=== PATIENT | female | born 1935 | race African-American/Black ===

== ENCOUNTER 2019-07-15 18:52 | Inpatient (IN) | payer MEDICARE, OTHER ==
[~2019-07-15] VITALS: Ht 165.1 cm; Wt 58.1 kg
[2019-07-15] MEDS ORDERED: SODIUM CHLORIDE 0.9% 1,000 ML IV ONE (19:23)
[2019-07-15] MEDS ORDERED: ONDANSETRON HCL 4MG/2ML INJ IV STA (19:23)
[2019-07-15 20:08] LABS: BASOPHILS % 0.5 % (0.0-2.0); EOSINOPHILS % 0.6 % (0.0-5.0); HEMOGLOBIN. 12.1 g/dL (12.0-16.0); LYMPHOCYTES % 17.4 % (20.0-50.0); MEAN CORPUSCULAR HEMOGLOBIN 31.4 pg (28.0-32.0); MEAN CORPUSCULAR VOLUME 88.3 fL (81.0-99.0); MEAN PLATELET VOLUME 8.5 fl (7.4-10.4); MONOCYTES % 6.4 % (2.0-8.0); NEUTROPHILS % 75.1 % (40.0-76.0); PLATELET 238 x1000/uL (130-400); RED BLOOD CELL COUNT 3.85 mill/uL (4.2-5.4); RED CELL DISTRIBUTION WIDTH 13.4 % (11.6-14.6)
[2019-07-15 20:14] LABS: INR 1.1; PARTIAL THROMBOPLASTIN TIME 24.6 sec (23.4-31.0); PROTHROMBIN TIME 10.9 sec (9.6-11.0)
[2019-07-15 20:19] LABS: CHLORIDE 108 mEq/L (98-107)
[2019-07-15 20:23] LABS: ETHANOL BLOOD < 10 mg/dL
[2019-07-15] MEDS ORDERED: LORAZEPAM 2MG/ML CPJ IV PRN (22:15)
[2019-07-15] MEDS ORDERED: IPRATROPIUM/ALBUTEROL 0.5-3(2.5)MG/3ML NEB HHN PRN (22:15)
[2019-07-15] MEDS ORDERED: HYDRALAZINE 20MG/ML VIAL IV PRN (22:15)
[2019-07-15] MEDS ORDERED: DOCUSATE SODIUM 100MG CAPSULE PO PRN (22:15)
[2019-07-15] MEDS ORDERED: DEXTROSE 50% WATER 50ML SYRINGE IV PRN (22:15)
[2019-07-15] MEDS ORDERED: HYDROCODONE/ACETAMINOPHEN 10/325MG TABLET PO PRN (22:15)
[2019-07-15] MEDS ORDERED: ACETAMINOPHEN 325MG TABLET PO PRN (22:15)
[2019-07-15] MEDS ORDERED: GUAIFENESIN 200MG/10ML SUGAR FREE UDC PO PRN (22:15)
[2019-07-15] MEDS ORDERED: ONDANSETRON HCL 4MG/2ML INJ IV PRN (22:15)
[2019-07-15] MEDS ORDERED: DIPHENHYDRAMINE 50MG/ML VIAL IV PRN (22:15)
[2019-07-15] MEDS ORDERED: CLONIDINE 0.1MG TABLET PO PRN (22:15)
[2019-07-15] MEDS ORDERED: MORPHINE SULFATE 2 MG/ML CPJ (NOT FOR IM USE) IV PRN (22:15)
[2019-07-15] MEDS ORDERED: NA PHOS,M-B/NA PHOS,DI-BA ENEMA 118ML PR PRN (22:15)
[2019-07-15] MEDS ORDERED: MAGNESIUM/ALUMINUM HYDROXIDE/SIMETHICONE 30ML UDC PO PRN (22:15)
[2019-07-16 05:33] LABS: BASOPHILS % 0.6 % (0.0-2.0); EOSINOPHILS % 0.9 % (0.0-5.0); HEMATOCRIT. 31.9 % (36.0-48.0); HEMOGLOBIN. 11.6 g/dL (12.0-16.0); LYMPHOCYTES % 28.8 % (20.0-50.0); MEAN CORPUSCULAR VOLUME 88.1 fL (81.0-99.0); MEAN PLATELET VOLUME 8.1 fl (7.4-10.4); MONOCYTES % 9.8 % (2.0-8.0); NEUTROPHILS % 59.9 % (40.0-76.0); PLATELET 218 x1000/uL (130-400); RED BLOOD CELL COUNT 3.62 mill/uL (4.2-5.4); RED CELL DISTRIBUTION WIDTH 13.2 % (11.6-14.6)
[2019-07-16 05:40] LABS: CHLORIDE 110 mEq/L (98-107)
[2019-07-16 05:48] LABS: LDL CHOLESTEROL 80 mg/dL (5-100)
[2019-07-16 05:49] LABS: HDL CHOLESTEROL 41 mg/dL (40-59); T4 FREE 0.79 ng/dL (0.76-1.46)
[2019-07-16 05:50] LABS: CREATINE KINASE 216 IU/L (26-192)
[2019-07-16 05:51] LABS: CREATINE KINASE MB FRACTION 3.2 ng/mL (0.5-3.6)
[2019-07-16 06:00] VITALS: BP 174/72
[2019-07-16] MEDS: SODIUM CHLORIDE 0.9% INJ 3ML FLUSH IVF SCH ×3 (06:32→21:07)
[2019-07-16] MEDS: BLOOD SUGAR DIAGNOSTIC STRIP TEST SCH ×4 (07:00→20:24)
[2019-07-16] MEDS: INSULIN LISPRO 100 UNITS/ML SUBCUT SCH ×4 (07:01→20:25)
[2019-07-16 08:00] VITALS: BP 118/62
[2019-07-16] MEDS ORDERED: DONE10TA36 MT (09:30)
[2019-07-16] MEDS ORDERED: ISOS10TA2 MT (09:30)
[2019-07-16] MEDS ORDERED: FERR325T6 PO (09:30)
[2019-07-16] MEDS ORDERED: METF-414 MT (09:30)
[2019-07-16] MEDS ORDERED: PIOG45TA5 PO (09:30)
[2019-07-16] MEDS ORDERED: FURO-151 MT (09:30)
[2019-07-16] MEDS ORDERED: ASPI-1393 PO (09:30)
[2019-07-16] MEDS ORDERED: FOLI20CA MT (09:30)
[2019-07-16] MEDS ORDERED: CALC-854 PO (09:30)
[2019-07-16] MEDS ORDERED: CRES10 MT (09:30)
[2019-07-16 12:00] VITALS: BP 136/53
[2019-07-16 12:03] VITALS: BP 145/62
[2019-07-16 12:05] VITALS: BP 164/84
[2019-07-16 16:20] LABS: CREATINE KINASE 252 IU/L (26-192)
[2019-07-16 16:21] LABS: CREATINE KINASE MB FRACTION 3.1 ng/mL (0.5-3.6)
[2019-07-16 16:59] LABS: CLARITY URINE CLEAR (CLEAR); COLOR URINE YELLOW (YELLOW); KETONES URINE NEGATIVE (NEGATIVE); LEUKOCYTE ESTERASE URINE NEGATIVE (NEGATIVE); NITRITE URINE NEGATIVE (NEGATIVE); OCCULT BLOOD URINE NEGATIVE (NEGATIVE); PH URINE 7.5 (4.5-8.0); PROTEIN URINE NEGATIVE (NEGATIVE); SPECIFIC GRAVITY URINE 1.021 (1.005-1.030)
[2019-07-16 17:15] LABS: *AMPHETAMINES SCREEN URINE NEGATIVE (NEGATIVE); *BENZODIAZEPINES SCREEN URINE NEGATIVE (NEGATIVE); *COCAINE SCREEN URINE NEGATIVE (NEGATIVE); CANNABINOID URINE SCREEN NEGATIVE (NEGATIVE); METHADONE URINE SCREEN NEGATIVE (NEGATIVE); OPIATES URINE SCREEN NEGATIVE (NEGATIVE); PHENCYCLIDINE URINE SCREEN NEGATIVE (NEGATIVE)
[2019-07-16 17:16] LABS: *BARBITURATES SCREEN URINE NEGATIVE (NEGATIVE)
[2019-07-16 20:00] VITALS: BP 144/49
[2019-07-17] VITALS (7 sets, daily range): BP systolic 126–201; BP diastolic 40–100
[2019-07-17] MEDS: SODIUM CHLORIDE 0.9% INJ 3ML FLUSH IVF SCH ×3 (05:35→23:23)
[2019-07-17] MEDS: BLOOD SUGAR DIAGNOSTIC STRIP TEST SCH ×4 (07:20→20:36)
[2019-07-17] MEDS: INSULIN LISPRO 100 UNITS/ML SUBCUT SCH ×4 (07:50→20:36)
[2019-07-17 09:34] LABS: BASOPHILS % 0.7 % (0.0-2.0); EOSINOPHILS % 2.5 % (0.0-5.0); HEMATOCRIT. 35.4 % (36.0-48.0); HEMOGLOBIN. 12.4 g/dL (12.0-16.0); LYMPHOCYTES % 27.4 % (20.0-50.0); MEAN CORPUSCULAR HEMOGLOBIN 30.8 pg (28.0-32.0); MEAN CORPUSCULAR VOLUME 87.9 fL (81.0-99.0); MEAN PLATELET VOLUME 8.8 fl (7.4-10.4); MONOCYTES % 7.5 % (2.0-8.0); NEUTROPHILS % 61.9 % (40.0-76.0); PLATELET 236 x1000/uL (130-400); RED BLOOD CELL COUNT 4.03 mill/uL (4.2-5.4); RED CELL DISTRIBUTION WIDTH 13.3 % (11.6-14.6)
[2019-07-18 00:30] VITALS: BP 119/53
[2019-07-18 04:00] VITALS: BP 148/57
[2019-07-18] MEDS: SODIUM CHLORIDE 0.9% INJ 3ML FLUSH IVF SCH (06:50)
[2019-07-18] MEDS: BLOOD SUGAR DIAGNOSTIC STRIP TEST SCH ×2 (06:50→13:46)
[2019-07-18] MEDS: INSULIN LISPRO 100 UNITS/ML SUBCUT SCH (07:50)
[2019-07-18 07:57] LABS: BASOPHILS % 0.9 % (0.0-2.0); HEMATOCRIT. 34.7 % (36.0-48.0); HEMOGLOBIN. 12.3 g/dL (12.0-16.0); MEAN CORPUSCULAR HEMOGLOBIN 31.5 pg (28.0-32.0); MEAN CORPUSCULAR VOLUME 89.3 fL (81.0-99.0); MEAN PLATELET VOLUME 9.1 fl (7.4-10.4); MONOCYTES % 10.5 % (2.0-8.0); NEUTROPHILS % 55.6 % (40.0-76.0); PLATELET 217 x1000/uL (130-400); RED BLOOD CELL COUNT 3.89 mill/uL (4.2-5.4); RED CELL DISTRIBUTION WIDTH 13.3 % (11.6-14.6)
[2019-07-18 08:00] VITALS: BP_SYST 143; BP_SYST 157; BP_SYST 176; BP_DIAS 56; BP_DIAS 64; BP_DIAS 81
[2019-07-18 10:18] VITALS: BP 143/56
[2019-07-18 12:00] VITALS: BP 151/58
== END 2019-07-18 13:50 | disposition home or self-care (01) | DRG 72 ==
LOC: ER 19:39 → 6WST 22:03 → EDBEDREQ 22:06 → EDBEDREQTM 22:06 → ENRESERV 07-16 05:02
PROVIDERS: ADMIT Internal Medicine; ATTEND Internal Medicine
DX: G93.40 Encephalopathy, unspecified (principal); I45.10 Unspecified right bundle-branch block; E11.9 Type 2 diabetes mellitus without complications; E78.5 Hyperlipidemia, unspecified; R55 Syncope and collapse; I10 Essential (primary) hypertension; I25.10 Atherosclerotic heart disease of native coronary artery without angina pectoris; M85.80 Other specified disorders of bone density and structure, unspecified site; Z79.84 Long term (current) use of oral hypoglycemic drugs; Z79.899 Other long term (current) drug therapy; Z86.73 Personal history of transient ischemic attack (TIA), and cerebral infarction without residual deficits; Z98.61 Coronary angioplasty status; Z79.82 Long term (current) use of aspirin; Z88.0 Allergy status to penicillin
CPT/HCPCS: 36415; 70544; 70553; 71045; 80048; 80061; 80305; 80320; 81003; 82550; 82553; 82962; 83036; 83880; 84439; 84443; 84484; 85379; 93005; 93306; 93880; 93970; 96374; 97162; 99285; J2405; J7030; G0480

== ENCOUNTER 2019-09-04 19:33 | Inpatient (IN) | payer MEDICARE, OTHER ==
[~2019-09-04] VITALS: Ht 165.1 cm; Wt 70.3 kg
[~2019-09-04 19:33] MED LIST: ASPI-1497 PO; CALC-854 PO; CRES10 MT; DONE10TA36 MT; FERR325T6 PO; FOLI20CA MT; FURO-151 MT; ISOS10TA2 MT; METF-414 MT; PIOG45TA5 PO
[2019-09-04 22:06] LABS: BASOPHILS % 0.6 % (0.0-2.0); EOSINOPHILS % 0.5 % (0.0-5.0); HEMATOCRIT. 37.1 % (36.0-48.0); HEMOGLOBIN. 13.1 g/dL (12.0-16.0); LYMPHOCYTES % 13.1 % (20.0-50.0); MEAN CORPUSCULAR HEMOGLOBIN 31.4 pg (28.0-32.0); MEAN CORPUSCULAR VOLUME 88.7 fL (81.0-99.0); MEAN PLATELET VOLUME 8.6 fl (7.4-10.4); MONOCYTES % 4.1 % (2.0-8.0); NEUTROPHILS % 81.7 % (40.0-76.0); PLATELET 248 x1000/uL (130-400); RED BLOOD CELL COUNT 4.19 mill/uL (4.2-5.4)
[2019-09-04 22:09] LABS: INR 1.1; PROTHROMBIN TIME 11.2 sec (9.6-11.0)
[2019-09-04 22:11] LABS: CHLORIDE 106 mEq/L (98-107)
[2019-09-04] MEDS ORDERED: ASPIRIN 325MG EC TABLET PO ONE (22:45)
[2019-09-04] MEDS ORDERED: SODIUM CHLORIDE 0.9% 500 ML IV ONE (22:50)
[2019-09-05 00:51] LABS: CLARITY URINE CLEAR (CLEAR); COLOR URINE YELLOW (YELLOW); KETONES URINE TRACE (NEGATIVE); LEUKOCYTE ESTERASE URINE 1+ (NEGATIVE); NITRITE URINE NEGATIVE (NEGATIVE); OCCULT BLOOD URINE NEGATIVE (NEGATIVE); PH URINE 6.5 (4.5-8.0); PROTEIN URINE TRACE (NEGATIVE); SPECIFIC GRAVITY URINE 1.025 (1.005-1.030)
[2019-09-05] MEDS ORDERED: IPRATROPIUM/ALBUTEROL 0.5-3(2.5)MG/3ML NEB HHN PRN (10:00)
[2019-09-05] MEDS ORDERED: ACETAMINOPHEN 650MG SUPP PR PRN (10:00)
[2019-09-05] MEDS ORDERED: ACETAMINOPHEN 650MG/20.3ML UDC GT PRN (10:00)
[2019-09-05] MEDS ORDERED: DIPHENHYDRAMINE 50MG/ML VIAL IV PRN (10:00)
[2019-09-05] MEDS ORDERED: ACETAMINOPHEN 325MG TABLET PO PRN (10:00)
[2019-09-05] MEDS ORDERED: CLONIDINE 0.1MG TABLET PO PRN (10:00)
[2019-09-05] MEDS ORDERED: MAGNESIUM/ALUMINUM HYDROXIDE/SIMETHICONE 30ML UDC PO PRN (10:00)
[2019-09-05] MEDS ORDERED: DOCUSATE SODIUM 100MG CAPSULE PO PRN (10:00)
[2019-09-05] MEDS ORDERED: NA PHOS,M-B/NA PHOS,DI-BA ENEMA 118ML PR PRN (10:00)
[2019-09-05] MEDS: SODIUM CHLORIDE 0.45% 1,000 ML IV SCH (10:31)
[2019-09-05] MEDS: ENOXAPARIN 30MG/0.3ML SYR SUBCUT SCH (10:32)
[2019-09-05 11:28] LABS: CHLORIDE 109 mEq/L (98-107)
[2019-09-05] MEDS: LISINOPRIL 5MG TABLET PO SCH (12:02)
[2019-09-05 13:51] LABS: BASOPHILS % 0.7 % (0.0-2.0); EOSINOPHILS % 2.1 % (0.0-5.0); HEMATOCRIT. 32.2 % (36.0-48.0); HEMOGLOBIN. 11.6 g/dL (12.0-16.0); LYMPHOCYTES % 27.4 % (20.0-50.0); MEAN CORPUSCULAR HEMOGLOBIN 31.7 pg (28.0-32.0); MEAN CORPUSCULAR VOLUME 88.4 fL (81.0-99.0); MEAN PLATELET VOLUME 8.5 fl (7.4-10.4); MONOCYTES % 7.3 % (2.0-8.0); NEUTROPHILS % 62.5 % (40.0-76.0); PLATELET 221 x1000/uL (130-400); RED BLOOD CELL COUNT 3.65 mill/uL (4.2-5.4); RED CELL DISTRIBUTION WIDTH 12.8 % (11.6-14.6)
[2019-09-05] MEDS: SODIUM CHLORIDE 0.9% INJ 3ML FLUSH IVF SCH ×2 (14:17→20:55)
[2019-09-05 16:30] VITALS: BP 148/50
[2019-09-05] MEDS ORDERED: PNEUMOCOCCAL 23-VAL P-SAC VAC 0.5 ML IM ONE (18:15)
[2019-09-05 20:00] VITALS: BP 148/66
[2019-09-05 21:03] LABS: CREATINE KINASE 234 IU/L (26-192); CREATINE KINASE MB FRACTION 2.7 ng/mL (0.5-3.6)
[2019-09-06] VITALS: BP 158/60
[2019-09-06] MEDS: SODIUM CHLORIDE 0.45% 1,000 ML IV SCH ×2 (02:39→19:19)
[2019-09-06 04:00] VITALS: BP 155/66
[2019-09-06 08:00] VITALS: BP 183/62
[2019-09-06 08:37] LABS: BASOPHILS % 0.7 % (0.0-2.0); EOSINOPHILS % 2.5 % (0.0-5.0); HEMATOCRIT. 35.5 % (36.0-48.0); HEMOGLOBIN. 12.5 g/dL (12.0-16.0); LYMPHOCYTES % 30.4 % (20.0-50.0); MEAN CORPUSCULAR HEMOGLOBIN 31.2 pg (28.0-32.0); MEAN CORPUSCULAR VOLUME 88.9 fL (81.0-99.0); MEAN PLATELET VOLUME 8.6 fl (7.4-10.4); MONOCYTES % 7.7 % (2.0-8.0); NEUTROPHILS % 58.7 % (40.0-76.0); PLATELET 231 x1000/uL (130-400)
[2019-09-06 08:47] LABS: CHLORIDE 108 mEq/L (98-107)
[2019-09-06 08:57] LABS: LDL CHOLESTEROL 79 mg/dL (5-100)
[2019-09-06 08:58] LABS: CREATINE KINASE 208 IU/L (26-192)
[2019-09-06 08:59] LABS: HDL CHOLESTEROL 43 mg/dL (40-59)
[2019-09-06 09:02] LABS: CREATINE KINASE MB FRACTION 2.1 ng/mL (0.5-3.6)
[2019-09-06] MEDS: LISINOPRIL 5MG TABLET PO SCH (09:12)
[2019-09-06] MEDS: ENOXAPARIN 30MG/0.3ML SYR SUBCUT SCH (09:12)
[2019-09-06] MEDS ORDERED: LISINOPRIL 5MG TABLET PO SCH (11:15)
[2019-09-06 12:00] VITALS: BP 173/62
[2019-09-06] MEDS: SODIUM CHLORIDE 0.9% INJ 3ML FLUSH IVF SCH (13:14)
[2019-09-06] MEDS ORDERED: HYDRALAZINE HCL 25MG TABLET PO SCH (14:00)
[2019-09-06] MEDS ORDERED: ISOSORBIDE DINITRATE 10MG TABLET PO SCH (15:53)
[2019-09-06 16:00] VITALS: BP 157/63
[2019-09-06] MEDS ORDERED: FUROSEMIDE 40MG TABLET PO SCH (16:00)
[2019-09-06 17:26] VITALS: BP 157/63
[2019-09-06] MEDS ORDERED: LISINOPRIL 10MG TABLET PO SCH (21:00)
== END 2019-09-06 19:45 | disposition home or self-care (01) | DRG 74 ==
LOC: ER 19:33 → EDBEDREQ 22:54 → EDBEDREQTM 22:54 → ENRESERV 09-05 13:57 → 6WST 09-05 16:06
PROVIDERS: ADMIT Family Medicine; ATTEND Family Medicine
DX: G90.8 Other disorders of autonomic nervous system (principal); I69.354 Hemiplegia and hemiparesis following cerebral infarction affecting left non-dominant side; I25.118 Atherosclerotic heart disease of native coronary artery with other forms of angina pectoris; E78.5 Hyperlipidemia, unspecified; S09.90XA Unspecified injury of head, initial encounter; G25.81 Restless legs syndrome; E11.9 Type 2 diabetes mellitus without complications; X58.XXXA Exposure to other specified factors, initial encounter; Z88.0 Allergy status to penicillin; Z95.5 Presence of coronary angioplasty implant and graft; Z79.899 Other long term (current) drug therapy; Z79.82 Long term (current) use of aspirin; Y93.89 Activity, other specified; Y92.89 Other specified places as the place of occurrence of the external cause; Y99.8 Other external cause status
CPT/HCPCS: 36415; 71045; 80053; 80061; 81003; 82550; 82553; 82962; 84484; 85025; 93005; 93306; 96360; 96361; 96372; 99285; J1650